=== PATIENT | female | born 1965 | race Caucasian/White ===

== ENCOUNTER 2018-10-03 08:15 | Emergency (ER) | payer OTHER ==
[~2018-10-03] VITALS: Ht 172.7 cm; Wt 63.5 kg
[2018-10-03] MEDS ORDERED: HYDROCHLOROTHIA25 M2 PO (08:32)
[2018-10-03] MEDS ORDERED: CRYSELLE1 EACH PO (08:33)
[2018-10-03 09:37] LABS: BASOPHILS 0.6 % (0.0-2.0); HEMATOCRIT 40.3 % (37.0-47.0); HEMOGLOBIN 13.8 gm/dL (12.0-15.0); MCH 30.2 pg (26.0-34.0); MCHC 34.2 g/dL (28.0-37.0); MCV 88.4 fL (80.0-100.0); PLATELET COUNT 216 thou/uL (150-400); POLYS 69.4 % (36.0-66.0); RBC 4.56 mil/uL (4.20-5.00); RDW 12.4 % (10.5-14.5); WBC 7.2 thou/uL (4.0-11.0)
[2018-10-03 09:44] LABS: CALCIUM 8.8 mg/dL (8.5-10.1); CREATININE 0.9 mg/dL (0.6-1.0); POTASSIUM 3.2 mmol/L (3.5-5.1)
[2018-10-03 09:50] LABS: ALBUMIN 3.8 g/dL (3.4-5.0); TOTAL BILIRUBIN 0.3 mg/dL (<0.1-1.0); TOTAL PROTEIN 7.1 g/dL (6.4-8.2)
[2018-10-03] MEDS ORDERED: ANTIVERT25 MG PO (10:31)
[2018-10-03 10:45] VITALS: BP 137/80
== END 2018-10-03 10:46 | disposition home or self-care (01) ==
LOC: ER 08:15
PROVIDERS: Emergency Medicine
DX: R42 Dizziness and giddiness (principal); R20.2 Paresthesia of skin; Z88.0 Allergy status to penicillin